=== PATIENT | male | born 1985 | race African-American/Black ===

== ENCOUNTER 2017-01-04 18:24 | Inpatient (IN) | payer OTHER ==
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
--- NOTE | ~2017-01-04 | EKG ---
PATIENT: JIM NIELSEN UNIT #: [id number] Ventricular Rate: 95 BPM Atrial Rate: 95 BPM P-R Interval: 148 ms QRS Duration: 72 ms Q-T Interval: 348 ms QTC Calculation(Bezet): 437 ms P [place]: 65 degrees Calculated R [place]: 73 degrees Calculated T [place]: 4 degrees Diagnosis Line: Normal sinus rhythm Diagnosis Line: Voltage criteria for left ventricular hypertrophy Diagnosis Line: Nonspecific T wave abnormality Diagnosis Line: Abnormal ECG Diagnosis Line: When compared with ECG of 21-MAR-2010 16:14, Diagnosis Line: Vent. rate has increased BY 39 BPM Diagnosis Line: QT has lengthened Diagnosis Line: Confirmed by JEYSON ARMSTRONG MD ([id number]) on 01/06/2017 Diagnosis Line: 5:41:17 AM INTERPRETING MD: PATTI PANCHAL
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
[~2017-01-04 18:24] MED LIST: FOLIC ACID1 MG PO; KETOPROFEN PO; NO MEDICATIONS; THIAMINE HCL100 MG PO
[2017-01-04] MEDS ORDERED: NO MEDICATIONS (20:32)
[2017-01-04 22:49] LABS: PARTIAL THROMBOPLASTIN TIME 29.1 SECONDS (23.5-31.3); PROTHROMBIN TIME (PATIENT) 10.6 SECONDS (10.0-11.7)
[2017-01-04 22:57] LABS: BASOPHIL# 0.1 X10e3 (0-0.3); BASOPHIL% 1.1 % (0-2.5); EOSINOPHIL% 0.6 % (0.0-7.0); HEMATOCRIT 36.8 % (38.0-50.0); HEMOGLOBIN 11.9 gm/dL (13.0-16.0); LYMPHOCYTE# 1.4 X10e3 (1.0-3.5); LYMPHOCYTE% 28.8 % (17.0-45.0); MEAN CELL VOLUME 103.8 FL (83-96); MEAN CORPUSCULAR HEMOGLOBIN 33.5 PG (28-34); MEAN CORPUSCULAR HGB CONC 32.2 g/dL (30-36); MEAN PLATELET VOLUME 10.5 FL (6.5-11.5); MONOCYTE# 0.3 X10e3 (0-1.0); MONOCYTE% 6.1 % (3.0-12.0); NEUTROPHIL# 3.1 X10e3 (1.5-7.1); NEUTROPHIL% 63.4 % (40-75); RED BLOOD COUNT 3.55 X10e (3.90-5.60); RED CELL DISTRIBUTION WIDTH 14.4 % (11.0-15.5); WHITE BLOOD COUNT 4.8 X10e3 (4.0-10.5)
[2017-01-04 22:59] LABS: DIFF IND YES; PLATELET COUNT 92 X10e3 (140-420)
[2017-01-04 23:02] LABS: PLATELET ESTIMATE DECREASED (NORMAL)
[2017-01-04 23:05] LABS: ALBUMIN SERUM 4.6 g/dL (3.5-5.0); BILIRUBIN,TOTAL 0.5 mg/dL (0.2-2.0); BUN/CREATININE RATIO 7.5; CALCIUM SERUM 8.8 mg/dL (8.4-10.2); CREATININE SERUM 0.8 mg/dL (0.6-1.4); GLOM FILT RATE Estimated 136.1 mL/min (>60); MAGNESIUM 1.5 mg/dL (1.6-3.0); POTASSIUM 3.6 mmol/L (3.5-5.1); PROTEIN TOTAL SERUM 7.8 g/dL (6.0-8.3)
[2017-01-05 04:15] LABS: BASOPHIL% 0.5 % (0-2.5); HEMATOCRIT 33.2 % (38.0-50.0); HEMOGLOBIN 10.9 gm/dL (13.0-16.0); LYMPHOCYTE# 0.8 X10e3 (1.0-3.5); LYMPHOCYTE% 12.2 % (17.0-45.0); MEAN CELL VOLUME 102.5 FL (83-96); MEAN CORPUSCULAR HEMOGLOBIN 33.6 PG (28-34); MEAN CORPUSCULAR HGB CONC 32.8 g/dL (30-36); MEAN PLATELET VOLUME 9.1 FL (6.5-11.5); MONOCYTE# 0.6 X10e3 (0-1.0); MONOCYTE% 9.3 % (3.0-12.0); NEUTROPHIL# 5.1 X10e3 (1.5-7.1); PLATELET COUNT 86 X10e3 (140-420); RED BLOOD COUNT 3.24 X10e (3.90-5.60); RED CELL DISTRIBUTION WIDTH 14.1 % (11.0-15.5); WHITE BLOOD COUNT 6.5 X10e3 (4.0-10.5)
[2017-01-05 04:16] LABS: DIFF IND NO
[2017-01-05 04:47] LABS: BUN/CREATININE RATIO 8.33; CALCIUM SERUM 8.5 mg/dL (8.4-10.2); CREATININE SERUM 0.6 mg/dL (0.6-1.4); GLOM FILT RATE Estimated 153.2 mL/min (>60)
[2017-01-05 09:41] LABS: URINE SOURCE CLEAN CATCH
[2017-01-05 09:50] LABS: URINE APPEARANCE CLEAR; URINE BILIRUBIN NEG (NEG); URINE BLOOD NEG (NEG); URINE COLOR YELLOW; URINE GLUCOSE NEG (NEG); URINE KETONE 1+ (NEG); URINE LEUKOCYTE ESTERASE NEG (NEG); URINE NITRATE NEG (NEG); URINE PROTEIN NEG (NEG); URINE SPECIFIC GRAVITY 1.014 (1.003-1.035); URINE UROBILINOGEN 0.2 MG/DL (NEG)
[2017-01-06 03:36] LABS: BASOPHIL% 0.3 % (0-2.5); DIFF IND NO; EOSINOPHIL% 0.5 % (0.0-7.0); HEMATOCRIT 33.5 % (38.0-50.0); HEMOGLOBIN 11.1 gm/dL (13.0-16.0); LYMPHOCYTE% 19.3 % (17.0-45.0); MEAN CELL VOLUME 101.8 FL (83-96); MEAN CORPUSCULAR HEMOGLOBIN 33.6 PG (28-34); MEAN PLATELET VOLUME 10.7 FL (6.5-11.5); MONOCYTE# 0.7 X10e3 (0-1.0); MONOCYTE% 13.3 % (3.0-12.0); NEUTROPHIL# 3.4 X10e3 (1.5-7.1); NEUTROPHIL% 66.6 % (40-75); PLATELET COUNT 76 X10e3 (140-420); RED BLOOD COUNT 3.29 X10e (3.90-5.60); RED CELL DISTRIBUTION WIDTH 13.4 % (11.0-15.5); WHITE BLOOD COUNT 5.1 X10e3 (4.0-10.5)
[2017-01-06 03:55] LABS: CALCIUM SERUM 9.1 mg/dL (8.4-10.2); CREATININE SERUM 0.7 mg/dL (0.6-1.4); GLOM FILT RATE Estimated 143.8 mL/min (>60); POTASSIUM 3.6 mmol/L (3.5-5.1)
[2017-01-06] MEDS ORDERED: LIBRIUM25 M1 PO (12:35)
[2017-01-06] MEDS ORDERED: MULTIVITAMINS1 EAC4 PO (12:36)
[2017-01-06] MEDS ORDERED: PERCOCET5/325 PO (12:36)
== END 2017-01-06 13:45 | disposition home health service (06) | DRG 563 ==
LOC: CED 18:24 → CEDOF 22:10 → CED 22:14 → CEDOF 22:14 → C4C 23:20 → CEDOF 23:20 → C4C 01-05 07:17
PROVIDERS: Emergency Medicine; Internal Medicine
DX: S82.142A Displaced bicondylar fracture of left tibia, initial encounter for closed fracture (principal); D69.59 Other secondary thrombocytopenia; M25.08 Hemarthrosis, other specified site; F10.239 Alcohol dependence with withdrawal, unspecified; F17.210 Nicotine dependence, cigarettes, uncomplicated; F10.229 Alcohol dependence with intoxication, unspecified; Y90.8 Blood alcohol level of 240 mg/100 ml or more; D53.9 Nutritional anemia, unspecified; R03.0 Elevated blood-pressure reading, without diagnosis of hypertension; V89.2XXA Person injured in unspecified motor-vehicle accident, traffic, initial encounter
CPT/HCPCS: 36415; 73562; 73700; 80048; 80053; 81003; 82378; 82607; 83735; 85025; 85610; 85730; 93005; 96361; 96374; 97116; 97162; 97166; 97530; 99285; G0480; J1170; J3411; J3475